=== PATIENT | male | born 1975 | race Asian ===

== ENCOUNTER 2016-08-16 13:35 | Day surgery (SDC) | payer BC ==
[~2016-08-16] VITALS: Ht 170.2 cm; Wt 99.6 kg
[2016-08-16] VITALS (8 sets, daily range): BP systolic 89–133; BP diastolic 56–95; PULSE 69–94; RESP 14–18; Ht 170.2 cm; Wt 99.6 kg
[~2016-08-16 13:35] MED LIST: BUPIVACAINE 0.25% (MPF) 30 ML INJ ONE
[2016-08-16] MEDS ORDERED: LISI20TA11 PO (14:40)
[2016-08-16] MEDS ORDERED: PRAV20TA63 PO (14:40)
[2016-08-16] MEDS ORDERED: CEFAZOLIN 2 GM/50 ML (PMX) 50 ML IVPB ONE (15:00)
[2016-08-16] MEDS ORDERED: SOD CHLORIDE 0.9% 1,000 ML IV SCH (15:00)
[2016-08-16] MEDS ORDERED: LIDOCAINE 2% (MDV) 20 ML INJ ONE (15:51)
[2016-08-16] MEDS ORDERED: PROPOFOL 40 ML ONE (16:02)
[2016-08-16] MEDS ORDERED: CEFAZOLIN 1 GM INJ ONE (16:02)
[2016-08-16] MEDS ORDERED: FENTAnyl 50 MCG/ML VIAL ONE (16:02)
[2016-08-16] MEDS ORDERED: METOCLOPRAMIDE 10 MG INJ ONE (16:02)
[2016-08-16] MEDS ORDERED: MIDAZOLAM 1 MG/ML 2 ML INJ ONE (16:02)
[2016-08-16] MEDS ORDERED: HYDROCODONE/APAP (5/325) TAB PO ONE (16:30)
[2016-08-16] MEDS ORDERED: MEPERIDINE 25 MG INJ IV PRN (16:30)
[2016-08-16] MEDS ORDERED: DIPHENHYDRAMINE 50 MG INJ IV PRN (16:30)
[2016-08-16] MEDS ORDERED: ONDANSETRON 4 MG INJ IV PRN (16:30)
[2016-08-16] MEDS ORDERED: HYDROmorphONE (0.2 MG/ML) 10ML SYG IV PRN ×3 (16:30)
[2016-08-16] MEDS ORDERED: OXYCODONE/ACETAMINOPHEN (5/325) TAB PO PRN ×2 (16:30)
[2016-08-16] MEDS ORDERED: METOCLOPRAMIDE 10 MG INJ IV PRN (16:30)
--- NOTE | 2016-08-16 16:31 | OPR ---
Date/Time of Note Date/Time of Note DATE: 08/16/16 TIME: 16:30 Operative Report Procedure Date: Aug 16, 2016 Preoperative Diagnosis right posterior knee mass Postoperative Diagnosis same Operation Performed excision right posterior knee mass 7 x 2 cm mass and 7 cm incision localized adjacent tissue transfer with the use of skin flaps 14 sq cm defect Surgeon: Valerie FREDERICK Specimens right posterior knee mass Valerie FREDERICK Aug 16, 2016 16:31
--- NOTE | 2016-08-16 16:53 | OPR ---
DATE OF OPERATION: 08/16/2016 INDICATION: This is a 41-year-old male with a right posterior knee mass. He requests surgical excision. The risks, alternatives, benefits, and personnel were discussed with the patient. Patient expressed understanding and consented to the operation. PREOPERATIVE DIAGNOSIS: Right posterior knee mass. POSTOPERATIVE DIAGNOSIS: Right posterior knee mass. OPERATION: 1. Posterior knee mass with a 7-cm incision and a 7 x 2-cm size mass. 2. Localized adjacent tissue transfer with the use of skin flaps, with a 14 square cm skin defect. 3. Therapeutic injection [place] [address]. SURGEON: Minna Garcia MD SPECIMEN: Right posterior knee mass. COMPLICATIONS: None. ANESTHESIA: MAC. PROCEDURE: The patient was taken to the OR and prepped and draped in the usual sterile fashion. A surgical timeout was performed. IV antibiotics were given. Local anesthesia was infiltrated into the area around the mass using a 15 blade. The mass was excised using an elliptical incision. Dissection cautery was carried down to the mass and circumferentially excised. There was good hemostasis. Due to the tissue defect, localized adjacent tissue transfer with the use of skin flaps was performed. Multilevel closure with interrupted 3-0 Vicryl and skin rhea. Dry dressings were applied. Dictated By: MINNA JAUREGUI/DORY Conf#: [id number] DID#: [id number]
== END 2016-08-16 17:48 | disposition home or self-care (01) ==
LOC: SDS 13:35
PROVIDERS: ATTEND Surgery
DX: L72.0 Epidermal cyst (principal); E66.9 Obesity, unspecified; Z68.34 Body mass index [BMI] 34.0-34.9, adult
CPT/HCPCS: 14020; 88304; J0690; J2250; J2765; J3010; Z7512; Z7610